=== PATIENT | female | born 1985 | race Caucasian/White ===

== ENCOUNTER 2021-06-08 13:52 | Emergency (ER) | payer MEDICAID, OTHER ==
[~2021-06-08] VITALS: Ht 165.1 cm; Wt 84.1 kg
[~2021-06-08 13:52] MED LIST: FERR-89 PO; NITR100C4 PO; SERT-158 PO
[2021-06-08 14:09] VITALS: BP 133/99
== END 2021-06-08 17:52 | disposition left against medical advice (07) ==
LOC: EMS 13:59
DX: F10.10 Alcohol abuse, uncomplicated (principal); F41.9 Anxiety disorder, unspecified; Z79.899 Other long term (current) drug therapy; Y90.9 Presence of alcohol in blood, level not specified
CPT/HCPCS: 99281; Z7502